=== PATIENT | female | born 1990 | race Caucasian/White ===

== ENCOUNTER 2019-09-28 09:07 | Emergency (ER) | payer OTHER ==
[~2019-09-28] VITALS: Ht 165.1 cm; Wt 85.9 kg
[2019-09-28 09:20] VITALS: Ht 165.1 cm; Wt 85.9 kg
[2019-09-28] MEDS ORDERED: CYCLOBENZAPRINE10 MG PO (09:24)
[2019-09-28] MEDS ORDERED: LIORESAL 10 MG10 MG PO ×2 (10:20→10:49)
[2019-09-28] MEDS ORDERED: DICLOFENAC SODI50 MG PO (10:20)
[2019-09-28] MEDS ORDERED: PREDNISONE20 MG PO (10:49)
[2019-09-28 10:58] VITALS: BP 103/74
== END 2019-09-28 10:59 | disposition home or self-care (01) ==
LOC: D.ER 09:07
DX: S16.1XXA Strain of muscle, fascia and tendon at neck level, initial encounter (principal); V89.2XXA Person injured in unspecified motor-vehicle accident, traffic, initial encounter; Y93.9 Activity, unspecified; Y92.9 Unspecified place or not applicable; R20.2 Paresthesia of skin; J45.909 Unspecified asthma, uncomplicated; M54.6 Pain in thoracic spine